=== PATIENT | female | born 1965 | race Caucasian/White ===

== ENCOUNTER 2022-10-08 14:23 | Observation (INO) ==
--- NOTE | 2022-10-08 15:03 | Emergency Department Note ---
History of Present Illness General Chief complaint: Leg Injury/Pain Stated complaint: L LEG PAIN,?BLOODCLOT,SWELLING Time Seen by Provider: 10/08/22 14:36 History of Present Illness Maximum Pain Intensity: 8 57 year old female who presents to ED today with c/o acute onset left calf swelling and pain x 2 days. She denies trauma to the extremity. She states that the pain is worse with ambulating. She has tried massaging the area as well as ice/warm compress with no improvement in her symptoms. She also notes increasing shortness of breath over the last couple days. She denies chest pain, fever, chills, cold lke symptoms, n/v, abdominal pain, right lower extremity pain/swelling. She recently was travelling in a car for 16hours on Friday. She denies a personal history of blood clots but does have a family history of them. Denies FH of blood clotting disorders. History of cigarette use but now vapes. Past Med/Surg History Social History Smoking Status: Never smoker Feels Safe at Home: Yes Physical Exam Vital Signs Vital Signs - 24 hr 10/08/22 14:27 10/08/22 14:39 10/08/22 14:58 Temperature 36.4 C L Temperature Source Temporal Artery Scan Pulse Rate 79 Pulse Rhythm Regular Respiratory Rate 20 18 Respiratory Effort / Characteristics Non-Labored Spontaneous Respiratory Depth Normal Blood Pressure 176/107 H Blood Pressure Mean 130 Pulse Oximetry 97 96 98 Oxygen Delivery Method Room Air Sepsis Recent Fever Within 48 Hours No Sepsis New/Unexplained Change in Mental Status No Sepsis Action Taken by Nursing No Action Required Constitutional: alert and oriented x3. no acute distress. Respiratory: lungs are clear to auscultation without wheezes, rhonchi, or rales bilaterally. equal chest rise. normal respiratory effort, no accessory muscle use. Cardiovascular: normal heart sounds without murmur. regular rate and rhythm. GI: abdomen is soft, nontender. nl bowel sounds present throughout. Peripheral vascular: lower extremities warm and well perfused with palpable pedal pulses. left calf tenderness to palpation. Mild edema LLE compared to R. Psych:appropriate mood and affect. Course Administered Medications Discontinued Medications Ioversol (Optiray 320 500ml) 109 ml IV ONCE ONE Stop: 10/08/22 16:27 Last Admin: 10/08/22 16:26 Dose: 109 ml Documented By: CAMMIE Medical Decision Making Differential Diagnosis DVT/PE, fracture, dislocation, contusion, ACS, pneumothorax, pleural effusion, CHF exacerbation, as well other pathologies. Laboratory Data Attestation: I reviewed the patient's lab results. 10/08/22 15:11 10/08/22 15:11 Lab Results 10/08/22 10/08/22 10/08/22 Range/Units 15:11 15:11 15:11 WBC 8.00 (4.8-10.8) K/ul RBC 4.66 (4.20-5.40) M/uL Hgb 12.0 (12.0-16.0) g/dl Hct 36.7 L (37.0-47.0) % MCV 78.8 L (80.0-100.0) fL MCH 25.8 (25.0-34.0) pg MCHC 32.7 (32.0-36.0) g/dL RDW Std Deviation 43.4 (36.4-46.3) fL RDW Coeff of Hayde 15.3 H (11.5-14.5) % Plt Count 262 (130-400) K/uL MPV 10.7 (9.4-12.4) fL Immature Gran % (Auto) 0.3 % Neut % (Auto) 67.5 % Lymph % (Auto) 24.1 % Wharton % (Auto) 5.6 % Eos % (Auto) 1.9 % Baso % (Auto) 0.6 % Neut # (Auto) 5.40 (1.40-6.50) K/uL Lymph # (Auto) 1.93 (1.2-3.4) K/uL Wharton # (Auto) 0.45 (0.11-0.59) K/uL Eos # (Auto) 0.15 (0-0.50) K/uL Baso # (Auto) 0.05 (0-0.2) K/uL Immature Gran # (Auto) 0.02 (0.01-0.20) K/uL PT 10.2 (9.0-12.0) Seconds INR 1.0 (0.9-1.1) APTT 24.8 (21.0-31.0) Seconds PTT Ratio 0.9 Sodium 139 (136-145) mmol/L Potassium 3.5 (3.5-5.1) mmol/L Chloride 108 H (98-107) mmol/L Carbon Dioxide 25 (21-32) mmol/L Anion Gap 6 (3-11) BUN 11 (6-23) mg/dl Creatinine 0.69 (0.6-1.2) mg/dl Est Cr Clr Drug Dosing Not Reportable Est GFR ( Amer) 113.6 ml/min Est GFR (Non-Af Amer) 98.0 ml/min BUN/Creatinine Ratio 15.9 (10-20) Glucose 99 (70-99(Fasting)) mg/dl Calcium 8.8 (8.5-10.1) mg/dl Troponin I High Sens 15.7 H (0-14) pg/ml Imaging Data Attestation: I personally reviewed and interpreted this imaging study as follows: My Impression: no evidence of pneumonia, pleural effusion, or pneumothorax Radiologist's Impression: Venous Doppler Study 10/08/22 14:57 ULTRASOUND LEFT LOWER EXTREMITY VENOUS CLINICAL HISTORY: Left leg pain and swelling. Pulmonary emboli. COMPARISON STUDY: Chest CT performed the same day 10/08/2022 TECHNIQUE: Real-time, grayscale, and color Doppler sonography of the deep veins of the left lower extremity was performed from the inguinal crease to the calf. Compression and augmentation were utilized. FINDINGS: There is no sonographic evidence of deep venous thrombosis identified in the left lower extremity. The common femoral, superficial femoral, and popliteal veins are patent and normally compressible. The greater saphenous vein and the profunda femoris vein at the junction with the common femoral vein are clear. The visualized calf veins are patent. IMPRESSION: There is no sonographic evidence of deep venous thrombosis identified in the left lower extremity. ACT 112: Negative or not required by law. Electronically signed by: Lowell Canela M.D. 10/08/2022 4:57 PM Chest CTA 10/08/22 14:58 CT angio chest PE protocol CLINICAL HISTORY: Chest Pain, eval for PE TECHNIQUE: Multidetector row helical CT of the chest was performed with angiographic protocol. Coronal and sagittal reformations were obtained. Coronal and sagittal MIPS were obtained from the axial data set and were submitted for review. Automated dose lowering techniques and/or adjustment according to patient size were utilized for this exam. CT DOSE: 854.58 mGy.cm Comparison: Comparison is made to chest radiograph 10/08/2022 FINDINGS: Lungs and pleura: There is a 4 mm nodule in the right upper lobe (series 4 image 197) and a 3 mm nodule in the right upper lobe (image 182). Heart and pericardium: Heart size is normal. No evidence of right heart strain. Vessels: Multiple subsegmental pulmonary emboli are seen in the bilateral lower lobes. Mediastinum and emily: Unremarkable. Chest wall and lower neck: Patient is status post thyroidectomy. Abdomen: Patient is status post Jose-en-Y gastric bypass. Bones: Degenerative changes in the thoracic spine. IMPRESSION: Multiple subsegmental pulmonary emboli are seen in the lower lobes without evidence of right heart strain. ACT 112: Negative or not required by law. Electronically signed by: Pa Cárdenas M.D. 10/08/2022 4:39 PM Chest X-Ray 10/08/22 14:58 XR chest 1V portable HISTORY: 57 years-old Female Chest pain, nonspecific COMPARISON: None TECHNIQUE: AP view of the chest FINDINGS: Cardiac silhouette is mildly enlarged. No pneumothorax, pleural effusion, airspace consolidation or pulmonary edema. Bones appear grossly intact. Surgical clips of the neck. IMPRESSION: No acute process. ACT 112: Negative or not required by law. The above report was generated using voice recognition software. It may contain grammatical, syntax or spelling errors. Electronically signed by: William Christian M.D. 10/08/2022 3:26 PM MDM Narrative 57 year old female who presents to ED today with c/o left calf pain and swelling as well as SOB. Review of pertinent visits and patient history performed. Vital signs in ED demonstrate hypertension otherwise within normal limits, afebrile. Given clinical presentation, DVT/PE work up was initiated. IV access was established and labs obtained. Labs without evidence of leukocytosis, anemia, or electrolyte abnormalities. Tropon 15.7. Repeat troponin pending. EKG demonstrating NSR at a rate of 69 bpm without evidence of ischemic changes. CXR obtained and unremarkable. Left lower extremity venous duplex also performed and was personally reviewed as well as interpreted by radiology and demonstrates no evidence of acute DVT. CTA chest personally reviewed and interpreted by radiology and notes multiple subsegmental pulmonary emboli in bilateral lower lobes without evidence of right heart strain. While in ED, patient declined need for pain medications. Patient was re-evaluated on numerous occasions. She is nontoxic appearing in no acute distress and hemodynamically stable. She was updated on all exam findings and tests results. She will be started on heparin gtt with bolus for PE. Recommend observation for continued monitoring then transitioned to PO anticoagulation. Patient verbalized understanding and is agreeable to this plan. Case was discussed with Gabrielle Zurita PA-C hospitalist who graciously admitted patient to their service. Patient was admitted for observation in stable condition. Case was discussed with attending, Dr. Wells, who agrees with work up and treatment plan. Impression & Plan Pulmonary embolism, Pain of left calf Discharge Plan Visit Data Chief Complaint: Leg Injury/Pain Stated Complaint: L LEG PAIN,?BLOODCLOT,SWELLING ED Provider: Jhonatan Wells ED Midlevel Provider: Janina Pitts Discharge Problem: Pulmonary embolism, Pain of left calf Patient Disposition: Admitted As Inpatient Forms Stand Alone Forms: Replaced By [facility] Referrals Referrals: PCP,NO [Primary Care Provider] -
--- NOTE | 2022-10-08 15:28 | XRay Report ---
XR chest 1V portable HISTORY: 57 years-old Female Chest pain, nonspecific COMPARISON: None TECHNIQUE: AP view of the chest FINDINGS: Cardiac silhouette is mildly enlarged. No pneumothorax, pleural effusion, airspace consolidation or p ulmonary edema. Bones appear grossly intact. Surgical clips of the neck. IMPRESSION: No acute process. ACT 112: Negative or not required by law. The above report was generated using voice recognition software. It may contain grammatical, syntax o r spelling errors. Electronically signed by: William Christian M.D. 10/08/2022 3:26 PM
[2022-10-08 15:46] LABS: Basophils # (auto) 0.05 K/uL (0-0.2); Basophils % (auto) 0.6 %; Eosinophils # (auto) 0.15 K/uL (0-0.50); Eosinophils % (auto) 1.9 %; Hematocrit (blood only) 36.7 % (37.0-47.0); Immature Granulocytes # (auto) 0.02 K/uL (0.01-0.20); Immature Granulocytes % (auto) 0.3 %; Lymphocytes # (auto) 1.93 K/uL (1.2-3.4); Lymphocytes % (auto) 24.1 %; Mean Corpuscular Hemoglobin 25.8 pg (25.0-34.0); Mean Corpuscular Hgb Conc 32.7 g/dL (32.0-36.0); Mean Corpuscular Volume 78.8 fL (80.0-100.0); Mean Platelet Volume 10.7 fL (9.4-12.4); Monocytes # (auto) 0.45 K/uL (0.11-0.59); Monocytes % (auto) 5.6 %; Neutrophils % (auto) 67.5 %; Platelet Count 262 K/uL (130-400); RDW Coefficient of Variation 15.3 % (11.5-14.5); RDW Standard Deviation 43.4 fL (36.4-46.3); Red Blood Count 4.66 M/uL (4.20-5.40)
--- NOTE | 2022-10-08 15:53 | Electrocardiogram Report ---
Test Reason : Blood Pressure : / mmHG Vent. Rate : 069 BPM Atrial Rate : 069 BPM P-R Int : 194 ms QRS Dur : 084 ms QT Int : 394 ms P-R-T Axes : 041 -02 015 degrees QTc Int : 422 ms Normal sinus rhythm Poor R wave progression, consider anterior SD vs. lead placement vs. LVH Abnormal ECG No previous ECGs available Confirmed by Dave Field ([id number]) on 10/08/2022 3:52:57 PM Referred By: SELF Confirmed By:Dave Field
[2022-10-08 15:59] LABS: Anion Gap 6 (3-11); BUN Creatinine Ratio 15.9 (10-20); Blood Urea Nitrogen 11 mg/dl (6-23); Calcium 8.8 mg/dl (8.5-10.1); Carbon Dioxide 25 mmol/L (21-32); Chloride 108 mmol/L (98-107); Est GFR (African American) 113.6 ml/min; Glucose 99 mg/dl (70-99(Fasting)); Potassium 3.5 mmol/L (3.5-5.1); Sodium 139 mmol/L (136-145)
[2022-10-08 16:05] LABS: Troponin I High Sensitivity 15.7 pg/ml (0-14)
[2022-10-08 16:12] LABS: Partial Thromboplastin Ratio 0.9; Partial Thromboplastin Time 24.8 Seconds (21.0-31.0); Prothrombin Time 10.2 Seconds (9.0-12.0)
[2022-10-08] MEDS ORDERED: OPTIRAY 320 500ml IV ONE (16:26)
--- NOTE | 2022-10-08 16:41 | CT Scan Report ---
CT angio chest PE protocol CLINICAL HISTORY: Chest Pain, eval for PE TECHNIQUE: Multidetector row helical CT of the chest was performed with angiographic protocol. Beard l and sagittal reformations were obtained. Coronal and sagittal MIPS were obtained from the axial airam a set and were submitted for review. Automated dose lowering techniques and/or adjustment according to patient size were utilized for this exam. CT DOSE: 854.58 mGy.cm Comparison: Comparison is made to chest radiograph 10/08/2022 FINDINGS: Lungs and pleura: There is a 4 mm nodule in the right upper lobe (series 4 image 197) and a 3 mm nodu le in the right upper lobe (image 182). Heart and pericardium: Heart size is normal. No evidence of right heart strain. Vessels: Multiple subsegmental pulmonary emboli are seen in the bilateral lower lobes. Mediastinum and emily: Unremarkable. Chest wall and lower neck: Patient is status post thyroidectomy. Abdomen: Patient is status post Jose-en-Y gastric bypass. Bones: Degenerative changes in the thoracic spine. IMPRESSION: Multiple subsegmental pulmonary emboli are seen in the lower lobes without evidence of right heart st rain. ACT 112: Negative or not required by law. Electronically signed by: Pa Cárdenas M.D. 10/08/2022 4:39 PM
--- NOTE | 2022-10-08 16:59 | Ultrasound Report ---
ULTRASOUND LEFT LOWER EXTREMITY VENOUS CLINICAL HISTORY: Left leg pain and swelling. Pulmonary emboli. COMPARISON STUDY: Chest CT performed the same day 10/08/2022 TECHNIQUE: Real-time, grayscale, and color Doppler sonography of the deep veins of the left lower ext remity was performed from the inguinal crease to the calf. Compression and augmentation were utilized . FINDINGS: There is no sonographic evidence of deep venous thrombosis identified in the left lower ext remity. The common femoral, superficial femoral, and popliteal veins are patent and normally compress ible. The greater saphenous vein and the profunda femoris vein at the junction with the common femora l vein are clear. The visualized calf veins are patent. IMPRESSION: There is no sonographic evidence of deep venous thrombosis identified in the left lower e xtremity. ACT 112: Negative or not required by law. Electronically signed by: Lowell Canela M.D. 10/08/2022 4:57 PM
[2022-10-08] MEDS ORDERED: Heparin IV Adult Wt-Based Standard WITH Bolus Protocol IV STA (17:20)
[2022-10-08] MEDS ORDERED: HEPARIN SOD (PORCINE) 1000 UNIT/ML IV ONE ×2 (17:35→18:00)
[2022-10-08] MEDS ORDERED: HEPARIN SODIUM/DEXTROSE 25,000 UNITS/500 ML BAG IV SCH (17:45)
--- NOTE | 2022-10-08 18:33 | History & Physical Report ---
Date of Service October 08, 2022 Assessment & Plan (1) Pulmonary embolism: (2) Pain of left calf: (3) Anxiety: (4) Acquired hypothyroidism: (5) Hypertension: (6) Paresthesia of both hands: Plan: This is a 57-year-old female with PMH of hypertension, hypothyroidism, anxiety and other medical problems listed below who presents with ongoing calf pain and shortness of breath for the past 3 days and was found to have multiple subsegmental emboli seen in lower lobes. Pulmonary emboli Provoked PE in setting of sedentary lifestyle, long car trips with recent return from [place] 3 days ago No DVT seen in LLE venous doppler Chest CTA with multiple subsegmental pulmonary emboli are seen in the lower lobes without evidence of right heart strain Oxygenating at 99% on room air High-sensitivity troponin mildly elevated at 15.7 -> 14.5 Will obtain 2D echocardiogram to eval for right heart strain Ordered limited hypercoag workup as patient already started on heparin Started on IV heparin. Will plan to transition to Cellumen tomorrow Monitor on telemetry, repeat EKG in a.m. HTN BP elevated in ED- continue home losartan, added PRN hydralazine Acquired hypothyroidism Continue levothyroxine Paresthesias in extremities H/o gastric bypass and admits to not taking MV - noting worsening paresthesias of hands and feet. No additional sx Will obtain B12, folate and Vitamin D levels on AM labs Anxiety Continue lexapro ADD Can hold Adderall as patient only takes when working DVT Ppx: IV heparin Code status: FULL PCP: No PCP - needs to establish with Sav PCP at time of dc home Dispo: Observation med tele Patient seen in collaboration with Dr. Bain. Please see addendum. History of Present Illness Chief Complaint: Left calf pain, shortness of breath Primary Care Provider: NO PCP This is a 57-year-old female with PMH of hypertension, hypothyroidism, anxiety and other medical problems listed below who presents with ongoing calf pain and shortness of breath for the past 3 days. 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 Recently took a trip to [place] and returned home 3 days ago. A week ago had left calf pain that resolved but recurred since returning home from [place] and has been more painful, swollen and with palpable knot. Also note taking intermittent shortness of breath over the past few days. Denies any chest pain or palpitations. No recent illness, fever, chills, lightheadedness, headache, wheezing, nausea, vomiting, dumping, dysuria, diarrhea or constipation. Does not have a PCP since moving into this area but is looking to establish with a provider after this visit. Denies any previous history of PE. Mom with history of PE but is on aware if she has any clotting disorder. Patient vapes nicotine. Allergies Allergy/AdvReac Type Severity Reaction Status Date / Time azithromycin Allergy Unknown Verified 10/08/22 23:05 Penicillins Allergy Unknown Verified 10/08/22 23:05 Home Medications Medication Instructions Recorded Confirmed Type dextroamphetamine-amphetamine 20 20 mg PO DAILY 10/08/22 10/08/22 History mg tablet escitalopram oxalate 20 mg tablet 20 mg PO DAILY 10/08/22 10/08/22 History levothyroxine 137 mcg tablet 137 mcg PO DAILY 10/08/22 10/08/22 History losartan 50 mg tablet 50 mg PO DAILY 10/08/22 10/08/22 History apixaban 5 mg tablet (Eliquis) 5 mg PO UD 30 days #40 tabs 10/09/22 Rx cyanocobalamin (vitamin B-12) 500 2,000 mcg PO QAM 30 days #120 tabs 10/09/22 Rx mcg tablet ergocalciferol (vitamin D2) 1,250 50,000 unit PO Q7D 60 days #8 caps 10/09/22 Rx mcg (50,000 unit) capsule Past Med/Surg History Medical History (Updated 10/08/22 @ 19:07 by Gabrielle Zurita PA-C) Acquired hypothyroidism ADD (attention deficit disorder) Takes only on days she works Anxiety Hypertension Surgical History (Updated 10/08/22 @ 19:03 by Gabrielle Zurita PA-C) H/O gastric bypass H/O thyroidectomy 2000 H/O wrist surgery History of surgery on lower extremity Hx of cholecystectomy Family History (Updated 10/08/22 @ 19:03 by Gabrielle Zurita PA-C) Other Cancer Heart disease Hypertension Social History (Updated 10/08/22 @ 19:04 by Gabrielle Zurita PA-C) Smoking Status: Former smoker Tobacco Type: E-cigarettes / Vaping Smoking End Date: quit cigarettes 2011, now vaping; Second Hand Exposure: No; Do You Dip or Chew Tobacco: No; Tobacco Cessation Education Requested by Patient: No Hx Alcohol Use: Yes Alcohol type: beer and wine Alcohol Intake Frequency: Monthly or Less Hx Substance Use: No Preferred Language: Bruneian Communication Ability: Effective Shingle Cutter Required: No Beliefs That Will Affect Care: None Current Living Situation: Spouse Other Information That Helps Us Care for You: No Feels Safe at Home: Yes Safety Concerns: Feels Safe At This Time Assistive Devices: None Review of Systems Review of Systems: At least ten systems reviewed and negative except as noted in the HPI. Physical Exam Physical Exam: General Appearance: WD/WN, vitals as above, NAD, sitting up in bed, pleasant, anxious, obese Head: normocephalic, atraumatic Eyes: normal inspection, PERRL, conjunctivae normal, anicteric sclerae ENT: external ear and nose normal, oropharynx normal Neck: normal visual inspection, trachea midline, no thyromegaly Respiratory: normal respiratory effort, lungs clear to auscultation, no wheeze, rales, rhonchi. No accessory muscle use Cardiovascular: regular rate, rhythm, no murmur, normal peripheral pulses, no BLE edema. Vessels: no JVD Chest: normal inspection of chest Abdomen/GI: normal bowel sounds, soft, nontender, no hepatosplenomegaly Extremities/Musculoskeletal: no cyanosis or clubbing, extremities motor strength 5/5. LLE non-pitting edema, calf TTP Neurologic: PERRL, EOMI, accommodation nl, no face palsy, no dysarthria, CN's II-XI intact bilaterally and moves all extremities Psychiatric: A+Ox3, euthymic affect Skin: no rashes, normal color, warm/dry Results & Data Results & Data ([facility]) Vital Signs (Past 12 Hours) Vital Signs Temp Pulse Resp BP Pulse Ox O2 Del Method 10/08/22 18:00 65 17 99 10/08/22 18:00 171/106 H 10/08/22 17:59 70 15 100 10/08/22 14:58 98 10/08/22 14:39 18 96 10/08/22 14:27 36.4 C L 79 20 176/107 H 97 Room Air Laboratory Results Short CBC 10/08/22 Range/Units 15:11 WBC 8.00 (4.8-10.8) K/ul Hgb 12.0 (12.0-16.0) g/dl Hct 36.7 L (37.0-47.0) % Plt Count 262 (130-400) K/uL BMP 10/08/22 15:11 Sodium 139 Potassium 3.5 Chloride 108 H Carbon Dioxide 25 BUN 11 Creatinine 0.69 Glucose 99 Calcium 8.8 Diagnostic Findings Venous Doppler Study 10/08/22 14:57 ULTRASOUND LEFT LOWER EXTREMITY VENOUS CLINICAL HISTORY: Left leg pain and swelling. Pulmonary emboli. COMPARISON STUDY: Chest CT performed the same day 10/08/2022 TECHNIQUE: Real-time, grayscale, and color Doppler sonography of the deep veins of the left lower extremity was performed from the inguinal crease to the calf. Compression and augmentation were utilized. FINDINGS: There is no sonographic evidence of deep venous thrombosis identified in the left lower extremity. The common femoral, superficial femoral, and popliteal veins are patent and normally compressible. The greater saphenous vein and the profunda femoris vein at the junction with the common femoral vein are clear. The visualized calf veins are patent. IMPRESSION: There is no sonographic evidence of deep venous thrombosis identified in the left lower extremity. ACT 112: Negative or not required by law. Electronically signed by: Lowell Canela M.D. 10/08/2022 4:57 PM Chest CTA 10/08/22 14:58 CT angio chest PE protocol CLINICAL HISTORY: Chest Pain, eval for PE TECHNIQUE: Multidetector row helical CT of the chest was performed with angiographic protocol. Coronal and sagittal reformations were obtained. Coronal and sagittal MIPS were obtained from the axial data set and were submitted for review. Automated dose lowering techniques and/or adjustment according to patient size were utilized for this exam. CT DOSE: 854.58 mGy.cm Comparison: Comparison is made to chest radiograph 10/08/2022 FINDINGS: Lungs and pleura: There is a 4 mm nodule in the right upper lobe (series 4 image 197) and a 3 mm nodule in the right upper lobe (image 182). Heart and pericardium: Heart size is normal. No evidence of right heart strain. Vessels: Multiple subsegmental pulmonary emboli are seen in the bilateral lower lobes. Mediastinum and emily: Unremarkable. Chest wall and lower neck: Patient is status post thyroidectomy. Abdomen: Patient is status post Jose-en-Y gastric bypass. Bones: Degenerative changes in the thoracic spine. IMPRESSION: Multiple subsegmental pulmonary emboli are seen in the lower lobes without evidence of right heart strain. ACT 112: Negative or not required by law. Electronically signed by: Pa Cárdenas M.D. 10/08/2022 4:39 PM Chest X-Ray 10/08/22 14:58 XR chest 1V portable HISTORY: 57 years-old Female Chest pain, nonspecific COMPARISON: None TECHNIQUE: AP view of the chest FINDINGS: Cardiac silhouette is mildly enlarged. No pneumothorax, pleural effusion, airspace consolidation or pulmonary edema. Bones appear grossly intact. Surgical clips of the neck. IMPRESSION: No acute process. ACT 112: Negative or not required by law. The above report was generated using voice recognition software. It may contain grammatical, syntax or spelling errors. Electronically signed by: William Christian M.D. 10/08/2022 3:26 PM ECG Additional Comments: Independently reviewed with normal sinus rhythm, no ST elevation Code Status & VTE Plan VTE Prophylaxis Plan VTE Prophylaxis will be ordered: Yes Supervising Physician Co-Signing Physician Notes Attending Addendum: delayed entry date of service noted above care coordinated with DAISY Gabrielle Zurita please refer to her notes for full details, I agree with her notes patient seen and examined, records reviewed by myself as well Joe Bain MD
[2022-10-08] MEDS ORDERED: hydrALAZINE HCL 20 MG/ML VIAL IV PRN (18:41)
[2022-10-08] MEDS ORDERED: Patient's ALLERGY Info needs ENTERED STA (21:10)
[2022-10-08] MEDS ORDERED: ACETAMINOPHEN 325 MG TAB PO PRN (21:31)
[2022-10-08] MEDS ORDERED: POLYETHYLENE (MIRALAX) 17 GM PACK PO PRN (21:31)
[2022-10-08] MEDS ORDERED: ONDANSETRON INJ 2 MG/ML 2 ML VIAL IV PRN (21:31)
[2022-10-08] MEDS ORDERED: Patient's ALLERGY Info needs ENTERED SCH (21:45)
[2022-10-09 01:31] LABS: Partial Thromboplastin Ratio 1.6; Partial Thromboplastin Time 43.7 Seconds (21.0-31.0)
[2022-10-09] MEDS ORDERED: LEVOTHYROXINE SODIUM 137 MCG TABLET PO SCH (06:30)
[2022-10-09 08:01] LABS: Basophils # (auto) 0.04 K/uL (0-0.2); Basophils % (auto) 0.7 %; Eosinophils # (auto) 0.18 K/uL (0-0.50); Eosinophils % (auto) 3.4 %; Hematocrit (blood only) 35.9 % (37.0-47.0); Hemoglobin 11.5 g/dl (12.0-16.0); Immature Granulocytes # (auto) 0.02 K/uL (0.01-0.20); Immature Granulocytes % (auto) 0.4 %; Lymphocytes # (auto) 1.31 K/uL (1.2-3.4); Lymphocytes % (auto) 24.5 %; Mean Corpuscular Hemoglobin 25.7 pg (25.0-34.0); Mean Corpuscular Volume 80.1 fL (80.0-100.0); Mean Platelet Volume 10.7 fL (9.4-12.4); Monocytes # (auto) 0.26 K/uL (0.11-0.59); Monocytes % (auto) 4.9 %; Neutrophils # (auto) 3.54 K/uL (1.40-6.50); Neutrophils % (auto) 66.1 %; Platelet Count 226 K/uL (130-400); RDW Coefficient of Variation 15.4 % (11.5-14.5); RDW Standard Deviation 44.5 fL (36.4-46.3); Red Blood Count 4.48 M/uL (4.20-5.40); White Blood Count 5.35 K/ul (4.8-10.8)
[2022-10-09 08:12] LABS: BUN Creatinine Ratio 12.7 (10-20); Calcium 8.8 mg/dl (8.5-10.1); Creatinine Clr Calc Pharmacy 117.3 ml/min; Est GFR (African American) 111.1 ml/min; Est GFR (Non-African American) 95.9 ml/min; Potassium 3.8 mmol/L (3.5-5.1)
[2022-10-09 08:37] LABS: Vitamin D, 25 Hydrox 10.9 ng/ml (30-100)
[2022-10-09 08:43] LABS: Partial Thromboplastin Ratio 1.5; Partial Thromboplastin Time 42.1 Seconds (21.0-31.0)
[2022-10-09] MEDS ORDERED: LOSARTAN POTASSIUM 50 MG TAB PO SCH (09:00)
[2022-10-09] MEDS ORDERED: ESCITALOPRAM OXALATE 20 MG TAB PO SCH (09:00)
[2022-10-09] MEDS ORDERED: CYANOCOBALAMIN (B-12) 500 MCG TABLET PO SCH (10:15)
[2022-10-09] MEDS ORDERED: APIXABAN 5 MG TABLET PO SCH (10:15)
[2022-10-09] MEDS ORDERED: ERGOCALCIFEROL 50,000 UNITS 1250 MCG CAP PO SCH (10:15)
[2022-10-09 11:15] VITALS: BP 136/77; PULSE 82; TEMP 98.1; O2SAT 96
--- NOTE | 2022-10-09 17:47 | Hospitalist Progress Note ---
Date of Service October 09, 2022 Assessment & Plan (1) Pulmonary embolism: (2) Pain of left calf: (3) Anxiety: (4) Acquired hypothyroidism: (5) Hypertension: (6) Paresthesia of both hands: Plan: Per DAISY Zurita's notes with addendum: This is a 57-year-old female with PMH of hypertension, hypothyroidism, anxiety and other medical problems listed below who presents with ongoing calf pain and shortness of breath for the past 3 days and was found to have multiple subsegmental emboli seen in lower lobes. Acute bilateral pulmonary emboli Provoked PE in setting of sedentary lifestyle, long car trips with recent return from [place] 3 days ago No DVT seen in LLE venous doppler Chest CTA with multiple subsegmental pulmonary emboli are seen in the lower lobes without evidence of right heart strain Oxygenating at 99% on room air High-sensitivity troponin mildly elevated at 15.7 -> 14.5 Will obtain 2D echocardiogram to eval for right heart strain Ordered limited hypercoag workup as patient already started on heparin Started on IV heparin. Will plan to transition to Eliquis tomorrow Monitor on telemetry, repeat EKG in a.m. 10/09 Patient remained hemodynamically stable On room air Echocardiogram: No signs of right ventricular strain Pulm acute heparin well Discharge plan: Eliquis 10 mg twice a day then 5 mg twice daily Follow-up hypercoagulable work-up sent at the ER (patient's mother also had PE) Follow-up with PCP in 1 week HTN Blood pressure improved Continue losartan 50 mg p.o. daily Monitor as an outpatient Acquired hypothyroidism Continue levothyroxine Paresthesias in extremities Vitamin B12 and vitamin D deficiencies H/o gastric bypass and admits to not taking MV - noting worsening paresthesias of hands and feet. No additional sx Will obtain B12, folate and Vitamin D levels on AM labs B12 low: 119 Vitamin D low: 10.9 Prescriptions for vitamin B12 2000 mcg daily and vitamin D 50 K weekly x2 months Follow-up levels as an outpatient Anxiety Continue lexapro ADD Patient only uses Adderall while at work DVT Ppx: IV heparin Code status: FULL PCP: No PCP - needs to establish with [facility] PCP at time of dc home Dispo: Discharge to home Follow-up with PCP in 1 week plan of care discussed with patient in detail and at length all questions answered she is understanding, agreeable, comfortable with the plan of care Admission and Anticipated Discharge Date Admission Date: October 08, 2022 Subjective Follow-up for acute pulmonary embolism, etc. Seen sitting up in bed, comfortable, not in distress States she feels much better No shortness of breath, chest pain, dizziness, palpitations No bleeding noted Denies headache States she is ready and would like to be discharged today Review of Systems Review of Systems: all noted and negative except for above Physical Exam Physical Exam: General- oriented x 3, not in distress, speaks in sentences with no effort or accessory muscle use Eyes- anicteric Neck- no JVD Lungs- clear breath sounds bilaterally, no rales/wheezes Heart- normal rate, regular rhythm; no murmurs Abdomen- normal bowel sounds, nondistended, soft, nontender Extremities- no pretibial edema, no calf tenderness Neuro- alert, oriented x 3; no gross focal neurologic deficits Skin- warm & dry Results & Data Results & Data ([facility]) Vital Signs (Past 12 Hours) Vital Signs Temp Pulse Pulse Pulse Pulse Resp Resp 10/09/22 14:04 36.7 C 82 18 10/09/22 11:14 36.7 C 82 18 10/09/22 10:58 100 H 92 H 88 20 10/09/22 07:37 36.9 C 85 18 Resp Resp BP Pulse Ox Pulse Ox Pulse Ox Pulse Ox 10/09/22 14:04 136/77 96 10/09/22 11:14 136/77 96 10/09/22 10:58 20 19 95 97 97 10/09/22 07:37 144/80 H 97 O2 Del Method 10/09/22 14:04 10/09/22 11:14 Room Air 10/09/22 10:58 10/09/22 07:37 Room Air all noted and reviewed including below
--- NOTE | 2022-10-09 17:52 | Discharge Summary ---
Discharge Summary Date of Service October 09, 2022 Notes For Next Care Provider Follow-up hypercoagulable work-up done at [facility] (limited as patient was already started on heparin drip at the ER). Monitor blood pressure, may need to increase losartan or add another agent. Repeat vitamin B12 and vitamin D levels in 4 to 6 weeks. Follow-up pulmonary nodules seen at CT chest: Medication Changes From Visit Eliquis 10 mg p.o. twice daily x7 days then 5 mg p.o. twice daily Vitamin B12 2000 mcg daily Vitamin D 50,000 units weekly Admission HPI Per Admitting Provider This is a 57-year-old female with PMH of hypertension, hypothyroidism, anxiety and other medical problems listed below who presents with ongoing calf pain and shortness of breath for the past 3 days. 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 Recently took a trip to [place] and returned home 3 days ago. A week ago had left calf pain that resolved but recurred since returning home from [place] and has been more painful, swollen and with palpable knot. Also note taking intermittent shortness of breath over the past few days. Denies any chest pain or palpitations. No recent illness, fever, chills, lightheadedness, headache, wheezing, nausea, vomiting, dumping, dysuria, diarrhea or constipation. Does not have a PCP since moving into this area but is looking to establish with a provider after this visit. Denies any previous history of PE. Mom with history of PE but is on aware if she has any clotting disorder. Patient vapes nicotine. Admission Exam Per Admitting Provider General Appearance:WD/WN, vitals as above, NAD, sitting up in bed, pleasant, anxious, obese Head: normocephalic, atraumatic Eyes:normal inspection, PERRL, conjunctivae normal, anicteric sclerae ENT: external ear and nose normal, oropharynx normal Neck: normal visual inspection, trachea midline, no thyromegaly Respiratory:normal respiratory effort, lungs clear to auscultation, no wheeze, rales, rhonchi. No accessory muscle use Cardiovascular: regular rate, rhythm, no murmur, normal peripheral pulses, no BLE edema. Vessels: no JVD Chest: normal inspection of chest Abdomen/GI: normal bowel sounds, soft, nontender, no hepatosplenomegaly Extremities/Musculoskeletal: no cyanosis or clubbing, extremities motor strength 5/5. LLE non-pitting edema, calf TTP Neurologic: PERRL, EOMI, accommodation nl, no face palsy, no dysarthria, CN's II-XI intact bilaterally and moves all extremities Psychiatric:A+Ox3, euthymic affect Skin: no rashes, normal color, warm/dry Principal Dx & Hospital Course #1 = Principal Diagnosis (1) Pulmonary embolism: (2) Pain of left calf: (3) Anxiety: (4) Acquired hypothyroidism: (5) Hypertension: (6) Paresthesia of both hands: Per DAISY Gabrielle Zurita's notes with addendum: This is a 57-year-old female with PMH of hypertension, hypothyroidism, anxiety and other medical problems listed below who presents with ongoing calf pain and shortness of breath for the past 3 days and was found to have multiple subsegmental emboli seen in lower lobes. Acute bilateral pulmonary emboli Provoked PE in setting of sedentary lifestyle, long car trips with recent return from [place] 3 days ago No DVT seen in LLE venous doppler Chest CTA with multiple subsegmental pulmonary emboli are seen in the lower lobes without evidence of right heart strain Oxygenating at 99% on room air High-sensitivity troponin mildly elevated at 15.7 -> 14.5 Will obtain 2D echocardiogram to eval for right heart strain Ordered limited hypercoag workup as patient already started on heparin Started on IV heparin. Will plan to transition to Eliquis tomorrow Monitor on telemetry, repeat EKG in a.m. 10/09 Patient remained hemodynamically stable On room air Echocardiogram: No signs of right ventricular strain Pulm acute heparin well Discharge plan: Eliquis 10 mg twice a day then 5 mg twice daily Follow-up hypercoagulable work-up sent at the ER (patient's mother also had PE) Follow-up with PCP in 1 week Pulmonary nodules Seen on CT chest: There is a 4 mm nodule in the right upper lobe (series 4 image 197) and a 3 mm nodule in the right upper lobe (image 182). Further work up, management, and ff up as outpatient HTN Blood pressure improved Continue losartan 50 mg p.o. daily Monitor as an outpatient Acquired hypothyroidism Continue levothyroxine Paresthesias in extremities Vitamin B12 and vitamin D deficiencies H/o gastric bypass and admits to not taking MV - noting worsening paresthesias of hands and feet. No additional sx Will obtain B12, folate and Vitamin D levels on AM labs B12 low: 119 Vitamin D low: 10.9 Prescriptions for vitamin B12 2000 mcg daily and vitamin D 50 K weekly x2 months Follow-up levels as an outpatient Anxiety Continue lexapro ADD Patient only uses Adderall while at work DVT Ppx: IV heparin Code status: FULL PCP: No PCP - needs to establish with [facility] PCP at time of dc home Dispo: Discharge to home Follow-up with PCP in 1 week plan of care discussed with patient in detail and at length all questions answered she is understanding, agreeable, comfortable with the plan of care Discharge Exam General- oriented x 3, not in distress, speaks in sentences with no effort or accessory muscle use Eyes- anicteric Neck- no JVD Lungs- clear breath sounds bilaterally, no rales/wheezes Heart- normal rate, regular rhythm; no murmurs Abdomen- normal bowel sounds, nondistended, soft, nontender Extremities- no pretibial edema, no calf tenderness Neuro- alert, oriented x 3; no gross focal neurologic deficits Skin- warm & dry Updated Medication List Medication Instructions Recorded Confirmed Type dextroamphetamine-amphetamine 20 20 mg PO DAILY 10/08/22 10/08/22 History mg tablet escitalopram oxalate 20 mg tablet 20 mg PO DAILY 10/08/22 10/08/22 History levothyroxine 137 mcg tablet 137 mcg PO DAILY 10/08/22 10/08/22 History losartan 50 mg tablet 50 mg PO DAILY 10/08/22 10/08/22 History apixaban 5 mg tablet (Eliquis) 5 mg PO UD 30 days #40 tabs 10/09/22 Rx cyanocobalamin (vitamin B-12) 500 2,000 mcg PO QAM 30 days #120 tabs 10/09/22 Rx mcg tablet ergocalciferol (vitamin D2) 1,250 50,000 unit PO Q7D 60 days #8 caps 10/09/22 Rx mcg (50,000 unit) capsule Hospital Stay Data Consultations 10/08/22 17:48 ED Decision to Admit Stat Diagnostic Imagining Performed 10/08/22 14:57 US venous duplex leg [US venous doppler LE LT] Stat FINDINGS: There is no sonographic evidence of deep venous thrombosis identified in the left lower extremity. The common femoral, superficial femoral, and popliteal veins are patent and normally compressible. The greater saphenous vein and the profunda femoris vein at the junction with the common femoral vein are clear. The visualized calf veins are patent. IMPRESSION: There is no sonographic evidence of deep venous thrombosis identified in the left lower extremity. 10/08/22 14:58 CT angio chest PE protocol Stat Comparison: Comparison is made to chest radiograph 10/08/2022 FINDINGS: Lungs and pleura: There is a 4 mm nodule in the right upper lobe (series 4 image 197) and a 3 mm nodule in the right upper lobe (image 182). Heart and pericardium: Heart size is normal. No evidence of right heart strain. Vessels: Multiple subsegmental pulmonary emboli are seen in the bilateral lower lobes. Mediastinum and emily: Unremarkable. Chest wall and lower neck: Patient is status post thyroidectomy. Abdomen: Patient is status post Jose-en-Y gastric bypass. Bones: Degenerative changes in the thoracic spine. IMPRESSION: Multiple subsegmental pulmonary emboli are seen in the lower lobes without evidence of right heart strain. ACT 112: Negative or not required by law. Electronically signed by: Pa Cárdenas M.D. 10/08/2022 4:39 PM Pending Results Patient Have Any Pending Studies at Discharge: Yes Discharge Instructions Given to Patient (Per Discharging Provider) PLEASE REFER TO YOUR NEW MEDICATION LIST AND FOLLOW INSTRUCTIONS CAREFULLY. YOUR NEW MEDICATIONS INCLUDE: Eliquis-blood thinner for treatment of pulmonary embolism 10 mg twice a day for 7 days, then 5 mg twice a day Vitamin D supplement-for low vitamin D levels Vitamin B-12 supplement-for low vitamin B12 levels PLEASE CALL YOUR PRIMARY CARE PHYSICIAN OR RETURN TO THE ER IF WITH WORSENING OF SYMPTOMS, INCLUDING Shortness of breath, chest pain, dizziness, palpitations, bleeding, leg swelling, etc. If you experience head trauma, please return to the ER immediately for evaluation even if you are not having symptoms. FOLLOW UP WITH PRIMARY CARE PHYSICIAN OUTLINED ABOVE. Total Time Total Time Spent Total Time Spent (In Minutes): >30 minutes
--- NOTE | 2022-10-10 06:07 | Electrocardiogram Report ---
Test Reason : Blood Pressure : / mmHG Vent. Rate : 058 BPM Atrial Rate : 058 BPM P-R Int : 192 ms QRS Dur : 084 ms QT Int : 468 ms P-R-T Axes : 077 019 022 degrees QTc Int : 459 ms Poor data quality, interpretation may be adversely affected Sinus bradycardia Otherwise normal ECG When compared with ECG of 08-OCT-2022 15:10, T wave amplitude has increased in Anterior leads Confirmed by Juventino Campos ([id number]) on 10/10/2022 6:06:58 AM Referred By: REFERRED SELF Confirmed By:Juventino Campos
== END 2022-10-09 14:40 | disposition home or self-care (01) ==
LOC: ED 14:23 → 2N 14:23